=== PATIENT | female | born 1990 | race Caucasian/White ===

== ENCOUNTER 2017-11-03 21:08 | Emergency (ER) | payer MEDICAID ==
[~2017-11-03] VITALS: Ht 160 cm; Wt 81.6 kg
[2017-11-03 21:09] VITALS: BP 139/90
--- NOTE | 2017-11-03 21:13 | NUR ---
PT AMBULATED TO BED 6 WITH VSS.
--- NOTE | 2017-11-03 21:15 | NUR ---
PT PRESENTED ER WITH SOB DUE TO ASTHMA ATTACK TODAY. PT STATED SHE USED HER INHALOR BUT STILL FEELS SOME WHEEZING AND SOB. PT O2 SAT. IS 98 % ON RA IN ER. SKIN IS PINK/WARM/DRY; AAOX4 WITH EVEN AND STEADY GAIT; ; HR EVEN AND REGULAR; PATIENT STATES PAIN OF 0/10 AT THIS TIME; VSS; PATIENT POSITIONED FOR COMFORT; HOB ELEVATED; BEDRAILS UP X2; BED DOWN. ER MD MADE AWARE OF PT STATUS.
[2017-11-03] MEDS ORDERED: ALBUTEROL SULFATE/IPRATROPIU 3 ML SOL IH ONE (21:45)
[2017-11-03] MEDS ORDERED: predniSONE 20 MG TAB PO ONE (21:45)
[2017-11-03 22:18] VITALS: BP 120/68
== END 2017-11-03 22:18 | disposition home or self-care (01) ==
LOC: MED 21:08
DX: J45.901 Unspecified asthma with (acute) exacerbation (principal); I10 Essential (primary) hypertension
CPT/HCPCS: 81002; 81025; 94640; 99283; J7512; J7620

== ENCOUNTER 2017-12-05 22:27 | Emergency (ER) | payer MEDICAID ==
[~2017-12-05] VITALS: Ht 160 cm; Wt 86.2 kg
[2017-12-05 22:27] VITALS: BP 148/92
--- NOTE | 2017-12-05 22:32 | NUR ---
PATIENT AMBULATED TO ER BED 1.
--- NOTE | 2017-12-05 22:33 | NUR ---
27 Y/O F W/C/O DIFFICULTY BREATHING AND CONGESTION X 1 DAY. NO RESPIRATORY DISTRESS NOTED.PT SPEAKS IN FULL SENTENCES.PT DENIES N/V/D; SKIN IS INTACT, PINK/WARM/DRY; AAOX4, PERRL, WITH EVEN AND STEADY GAIT; LUNGS WHEEZING BL, BREATHING UNLABORED; HR EVEN AND REGULAR, BL PERIPHERAL PULSES PRESENT; BS ACTIVE X4, NO TENDERNESS TO PALPATION, NO HEPATOSPLENOMEGALLY PALPATED, RESONANT TO PERCUSSION; PT DENIES ANY FEVER, CP, OR COUGH AT THIS TIME; VSS; PATIENT POSITIONED FOR COMFORT; HOB ELEVATED; BEDRAILS UP X2; BED DOWN.
--- NOTE | 2017-12-05 22:48 | NUR ---
Dr. Meraz evaluating patient at bedside.
--- NOTE | 2017-12-05 22:48 | NUR ---
Respiratory Therapist at bedside for respiratory intervention.
[2017-12-05] MEDS ORDERED: ALBUTEROL SULFATE/IPRATROPIU 3 ML SOL IH ONE ×2 (22:55→22:56)
[2017-12-05] MEDS ORDERED: predniSONE 20 MG TAB PO ONE (22:55)
[2017-12-06] MEDS ORDERED: ALBUTEROL SULFATE/IPRATROPIU 3 ML SOL IH ONE (00:05)
--- NOTE | 2017-12-06 01:22 | NUR ---
PATIENT RESTING AT THIS TIME. NO SIGNS OF DISTRESS.
[2017-12-06 01:30] VITALS: BP 138/82
--- NOTE | 2017-12-06 01:30 | NUR ---
Patient discharged with v/s stable. Written and verbal after care instructions given and explained. Patient alert, oriented and verbalized understanding of instructions. Ambulatory with steady gait. All questions addressed prior to discharge. ID band removed. Patient advised to follow up with PMD. Rx of PREDNISONE 50MG AND ALBUTEROL 90MCG/ACTUATION given. Patient educated on indication of medication including possible reaction and side effects. Opportunity to ask questions provided and answered.
== END 2017-12-06 01:30 | disposition home or self-care (01) ==
LOC: MED 22:27
DX: J45.901 Unspecified asthma with (acute) exacerbation (principal); I10 Essential (primary) hypertension
CPT/HCPCS: 71045; 94640; 99283; J7512; J7620; Q0092

== ENCOUNTER 2018-05-14 22:28 | Emergency (ER) | payer MEDICAID ==
[~2018-05-14] VITALS: Ht 160 cm; Wt 85.7 kg
[2018-05-14 22:39] VITALS: BP 155/86
--- NOTE | 2018-05-14 22:39 | NUR ---
PT TRIAGED AND AMBULATED TO BED 12 REPORT TO JERMAINE ESPINOZA
--- NOTE | 2018-05-14 22:40 | NUR ---
PT TAKEN TO US
--- NOTE | 2018-05-14 22:45 | NUR ---
PT C/O SCANT AMOUNT OF BROWN VAGINAL DISCHARGE AND R/L LOWER QUADRANT ABD CRAMPING 5/10 STARTING 30 MIN AGO, 5 WEEKS , MISCARRIED FIRST . YING 01/13/19. DENIES CP/SOB/DIZZINESS. --DENIES N/V/D; SKIN IS PINK/WARM/DRY; AAOX4 WITH EVEN AND STEADY GAIT; LUNGS CLEAR BL; HR EVEN AND REGULAR; PT DENIES ANY FEVER, CP, SOB, OR COUGH AT THIS TIME; VSS; PATIENT POSITIONED FOR COMFORT; HOB ELEVATED; BEDRAILS UP X2; BED DOWN. ER MD MADE AWARE OF PT STATUS. HX--MISCARRIAGE MEDS-- VITAMINS
[2018-05-14 23:29] LABS: BASOPHILS # (AUTO) 0.1 K/uL (0.00-0.22); BASOPHILS % (AUTO) 0.9 % (0.0-2.0); EOSINOPHILS # (AUTO) 1.1 K/uL (0-0.4); EOSINOPHILS % (AUTO) 6.8 % (0.0-4.0); HEMATOCRIT 40.4 % (36-48); HEMOGLOBIN 13.3 g/dL (12.0-16.0); LYMPHOCYTES # (AUTO) 4.9 K/uL (2.5-16.5); LYMPHOCYTES % (AUTO) 30.6 % (20.5-51.1); MEAN CORPUSCULAR HEMOGLOBIN 29 pg (27-31); MEAN CORPUSCULAR HGB CONC 33 g/dL (33-37); MONOCYTES # (AUTO) 1.1 K/uL (0.8-1.0); MONOCYTES % (AUTO) 7.1 % (1.7-9.3); NEUTROPHILS # (AUTO) 8.7 K/uL (1.8-7.7); PLATELET COUNT (AUTO) 393 K/uL (140-450); RED BLOOD CELL COUNT(AUTO) 4.54 MIL/uL (4.20-5.40); RED CELL DISTRIBUTION WIDTH 13.6 % (11.6-13.7); WHITE BLOOD COUNT (AUTO) 15.9 K/uL (4.8-10.8)
[2018-05-14 23:36] LABS: APPEARANCE,URINE CLEAR (CLEAR); BILIRUBIN,URINE NEGATIVE (NEGATIVE); BLOOD, URINE 2+ (NEGATIVE); COLOR,URINE YELLOW (YELLOW); LEUKOCYTE ESTERASE ,URINE 1+ (NEGATIVE); NITRITE, URINE NEGATIVE (NEGATIVE); PH,URINE 7.5 (5.0-9.0); UGLUCOSE NEGATIVE (NEGATIVE)
[2018-05-14 23:45] LABS: ANION GAP 12.4 (8-16); CARBON DIOXIDE 26.5 mmol/L (21-32); CREATININE 0.7 mg/dL (0.6-1.3); POTASSIUM 3.9 mmol/L (3.5-5.1)
[2018-05-14 23:48] LABS: RBC,URINE 0 /HPF (0-5)
[2018-05-14 23:52] LABS: NEUTROPHILS % (AUTO) 54.6 % (42.2-75.2)
[2018-05-15 00:34] VITALS: BP 132/78
== END 2018-05-15 00:25 | disposition home or self-care (01) ==
LOC: MED 22:28
DX: O23.41 Unspecified infection of urinary tract in pregnancy, first trimester (principal); O99.511 Diseases of the respiratory system complicating pregnancy, first trimester; J45.909 Unspecified asthma, uncomplicated; O16.1 Unspecified maternal hypertension, first trimester; Z3A.01 Less than 8 weeks gestation of pregnancy
CPT/HCPCS: 36415; 76801; 80048; 81001; 84702; 85025; 86900; 86901; 87086; 99284; Q0092

== ENCOUNTER 2018-06-24 15:14 | Emergency (ER) | payer SELFPAY ==
[~2018-06-24] VITALS: Ht 160 cm; Wt 84.4 kg
[2018-06-24 15:19] VITALS: BP 142/86
--- NOTE | 2018-06-24 15:30 | NUR ---
URINE COLLECTED AND SENT TO LAB
--- NOTE | 2018-06-24 15:30 | NUR ---
PT AMBULATED TO BED 2
--- NOTE | 2018-06-24 15:31 | NUR ---
C/O LOWER CENTRAL ABD PAIN & NAUSEA X 1 DAY, DENIES V/D/FEVER, VAGINAL BLEEDING. PT HAD PREVIOUS MISCARRAIGE 05/15/2018 HERE AT [facility]. HCG (+). SKIN IS PINK/WARM/DRY; AAOX4 WITH EVEN AND STEADY GAIT; LUNGS CLEAR BL; HR EVEN AND REGULAR; VSS; PATIENT POSITIONED FOR COMFORT; HOB ELEVATED; BEDRAILS UP X1; BED DOWN. ER MD MADE AWARE OF PT STATUS.
[2018-06-24 15:53] LABS: BASOPHILS # (AUTO) 0.1 K/uL (0.00-0.22); BASOPHILS % (AUTO) 0.8 % (0.0-2.0); EOSINOPHILS # (AUTO) 0.6 K/uL (0-0.4); HEMATOCRIT 40.7 % (36-48); HEMOGLOBIN 13.7 g/dL (12.0-16.0); LYMPHOCYTES # (AUTO) 4.4 K/uL (2.5-16.5); LYMPHOCYTES % (AUTO) 28.2 % (20.5-51.1); MEAN CORPUSCULAR HEMOGLOBIN 30 pg (27-31); MEAN CORPUSCULAR HGB CONC 34 g/dL (33-37); MEAN CORPUSCULAR VOLUME 88.6 fL (80-94); MONOCYTES # (AUTO) 0.9 K/uL (0.8-1.0); MONOCYTES % (AUTO) 5.8 % (1.7-9.3); NEUTROPHILS # (AUTO) 9.5 K/uL (1.8-7.7); NEUTROPHILS % (AUTO) 61.2 % (42.2-75.2); PLATELET COUNT (AUTO) 430 K/uL (140-450); RED BLOOD CELL COUNT(AUTO) 4.59 MIL/uL (4.20-5.40); RED CELL DISTRIBUTION WIDTH 13.7 % (11.6-13.7); WHITE BLOOD COUNT (AUTO) 15.5 K/uL (4.8-10.8)
[2018-06-24 16:09] LABS: APPEARANCE,URINE CLOUDY (CLEAR); BILIRUBIN,URINE NEGATIVE (NEGATIVE); BLOOD, URINE TRACE-I (NEGATIVE); COLOR,URINE YELLOW (YELLOW); LEUKOCYTE ESTERASE ,URINE TRACE (NEGATIVE); NITRITE, URINE NEGATIVE (NEGATIVE); PH,URINE 6.5 (5.0-9.0); UGLUCOSE NEGATIVE (NEGATIVE)
[2018-06-24 16:28] LABS: RBC,URINE 0-5 /HPF (0-5); URINE AMORPHOUS URATE 1+ /HPF (None Seen)
--- NOTE | 2018-06-24 17:32 | NUR ---
PT RESTING IN BED, NO NEW NEEDS AT THIS TIME
--- NOTE | 2018-06-24 17:50 | NUR ---
CALLED U/S TO CHECK STATUS OF RESULTS
--- NOTE | 2018-06-24 17:55 | NUR ---
U/S CALLED BACK TO INFORM THIS ONE IS THE NEXT ONE TO BE READ
[2018-06-24 18:55] VITALS: BP 132/80
--- NOTE | 2018-06-24 18:55 | NUR ---
Patient discharged with v/s stable. Written and verbal after care instructions given and explained. Patient alert, oriented and verbalized understanding of instructions. Ambulatory with steady gait. All questions addressed prior to discharge. ID band removed. Patient advised to follow up with PMD. Rx of ZOFRAN AND MACROBID given. Patient educated on indication of medication including possible reaction and side effects. Opportunity to ask questions provided and answered.
--- NOTE | 2018-06-25 15:00 | NUR ---
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
== END 2018-06-24 18:55 | disposition home or self-care (01) ==
LOC: MED 15:14
DX: O20.0 Threatened abortion (principal); O23.41 Unspecified infection of urinary tract in pregnancy, first trimester; J45.909 Unspecified asthma, uncomplicated; Z3A.01 Less than 8 weeks gestation of pregnancy
CPT/HCPCS: 36415; 76817; 81001; 81025; 84702; 85025; 87086; 99284; Q0092

== ENCOUNTER 2018-07-18 19:27 | Emergency (ER) | payer MEDICAID ==
[~2018-07-18] VITALS: Ht 160 cm; Wt 84.4 kg
[2018-07-18 19:37] VITALS: BP 153/96
--- NOTE | 2018-07-18 19:57 | NUR ---
28/F PRESENTS WITH SPOUSE, C/O BROWN VAGINAL DISCHARGE X1 HR. PT REPORTS BEING 8 WEEKS , A2. PT DENIES VAGINAL BLEEDING. REPORTS 6/10 LOWER ABD PAIN, RADIATING TO LOWER BACK, X2 DAYS. PT DENIES FEVER, N/V/D, CONSTIPATION OR DYSURIA. AOX4, GCS 15, SKIN NORMAL WARM AND DRY, RR EVEN AND UNLABORED. HX ASTHMA RX ALBUTEROL, VITAMINS
[2018-07-18 20:40] LABS: BASOPHILS # (AUTO) 0.1 K/uL (0.00-0.22); BASOPHILS % (AUTO) 0.8 % (0.0-2.0); EOSINOPHILS % (AUTO) 6.8 % (0.0-4.0); HEMATOCRIT 40.3 % (36-48); HEMOGLOBIN 13.5 g/dL (12.0-16.0); LYMPHOCYTES # (AUTO) 3.7 K/uL (2.5-16.5); LYMPHOCYTES % (AUTO) 26.2 % (20.5-51.1); MEAN CORPUSCULAR HEMOGLOBIN 30 pg (27-31); MEAN CORPUSCULAR HGB CONC 33 g/dL (33-37); MEAN CORPUSCULAR VOLUME 88.7 fL (80-94); MONOCYTES # (AUTO) 0.9 K/uL (0.8-1.0); MONOCYTES % (AUTO) 6.6 % (1.7-9.3); NEUTROPHILS # (AUTO) 8.4 K/uL (1.8-7.7); NEUTROPHILS % (AUTO) 59.6 % (42.2-75.2); PLATELET COUNT (AUTO) 393 K/uL (140-450); RED BLOOD CELL COUNT(AUTO) 4.54 MIL/uL (4.20-5.40); RED CELL DISTRIBUTION WIDTH 13.4 % (11.6-13.7); WHITE BLOOD COUNT (AUTO) 14.1 K/uL (4.8-10.8)
[2018-07-18 20:40] LABS: APPEARANCE,URINE CLEAR (CLEAR); BILIRUBIN,URINE NEGATIVE (NEGATIVE); BLOOD, URINE TRACE-I (NEGATIVE); COLOR,URINE YELLOW (YELLOW); LEUKOCYTE ESTERASE ,URINE NEGATIVE (NEGATIVE); NITRITE, URINE NEGATIVE (NEGATIVE); PH,URINE 6.5 (5.0-9.0); UGLUCOSE NEGATIVE (NEGATIVE)
[2018-07-18 22:05] VITALS: BP 133/81
--- NOTE | 2018-07-18 22:05 | NUR ---
Patient discharged with v/s stable. Written and verbal after care instructions given and explained. Patient verbalized understanding. Ambulatory with steady gait. All questions addressed prior to discharge. Advised to follow up with PMD.
== END 2018-07-18 22:05 | disposition home or self-care (01) ==
LOC: MED 19:27
DX: O20.0 Threatened abortion (principal); J45.909 Unspecified asthma, uncomplicated; Z3A.08 8 weeks gestation of pregnancy
CPT/HCPCS: 36415; 76817; 81003; 81025; 84702; 85025; 86900; 86901; 87210; 99284; Q0092

== ENCOUNTER 2020-06-18 18:20 | Emergency (ER) | payer MEDICAID ==
[~2020-06-18] VITALS: Ht 157.5 cm; Wt 94.8 kg
[2020-06-18 18:36] VITALS: BP 140/80
--- NOTE | 2020-06-18 18:55 | NUR ---
Patient ambulated to bed 01 with steady/even gait.
--- NOTE | 2020-06-18 19:08 | NUR ---
29 y/o F coming in from home with c/c subrapubic pain since 06/17/20. Patient states acute onset of surbapubic pain, describes pain as 4/10, cramp/stabbing/intermittent. Pt states she took Tylenol with relief prior to arrival. Pt states she feels better when laying down, pain worsens when holding her baby or any form of weight. Pt states associated nausea, diarrhea x 3-4 on 06/18 no blood or foul smell noted, and "feeling bloated." Patient denies vomiting, constipation, urinary symptoms, CP, SOB. Pt states associated back pain, however, is chronic and usual for her. Pt states LMP is 3 months ago, "has irregular periods." Pt denies being exposed to any COVID + patients, and has not received any recent vaccinations at this time. manufacturing team leader in place. Lung sounds CTA. Bowel sounds normoactive x 4 quadrants. Bed locked in lowest position, side rails x 1, call light in reach. PMH: Ovarian cyst, asthma, anxiety/panic attacks MEds: Octavio Brown Aderax NKA Sx: 2019
--- NOTE | 2020-06-18 19:15 | NUR ---
Report and transfer of care given to ALEXIS Richards.
--- NOTE | 2020-06-18 19:15 | NUR ---
RECEIVED PT IN BED 1, AWAKE AND ALERT WITH C/O A/P, NAUSEA AND DIARRHEA. PT STATES H/O " CYSTS ". STATES PAIN IS 4/10.
[2020-06-18] MEDS ORDERED: NACL 0.9% 1,000 ML IV ONE (19:25)
[2020-06-18] MEDS ORDERED: ONDANSETRON 4 MG/2 ML VIAL IVP ONE (19:25)
[2020-06-18 19:41] LABS: APPEARANCE,URINE CLEAR (CLEAR); BILIRUBIN,URINE NEGATIVE (NEGATIVE); BLOOD, URINE TRACE-I (NEGATIVE); COLOR,URINE YELLOW (YELLOW); LEUKOCYTE ESTERASE ,URINE NEGATIVE (NEGATIVE); NITRITE, URINE NEGATIVE (NEGATIVE); PH,URINE 6.5 (5.0-9.0); UGLUCOSE NEGATIVE (NEGATIVE)
[2020-06-18 19:52] LABS: WBC,URINE 0-5 /HPF (0-5)
[2020-06-18 20:04] LABS: BASOPHILS # (AUTO) 0.1 K/uL (0.00-0.22); BASOPHILS % (AUTO) 0.5 % (0.0-2.0); EOSINOPHILS # (AUTO) 0.5 K/uL (0-0.4); EOSINOPHILS % (AUTO) 3.4 % (0.0-4.0); HEMATOCRIT 40.6 % (36-48); HEMOGLOBIN 13.2 g/dL (12.0-16.0); LYMPHOCYTES # (AUTO) 4.8 K/uL (2.5-16.5); MEAN CORPUSCULAR HEMOGLOBIN 29 pg (27-31); MEAN CORPUSCULAR HGB CONC 33 g/dL (33-37); MEAN CORPUSCULAR VOLUME 87.9 fL (80-94); MONOCYTES # (AUTO) 0.9 K/uL (0.8-1.0); NEUTROPHILS # (AUTO) 8.3 K/uL (1.8-7.7); NEUTROPHILS % (AUTO) 57.1 % (42.2-75.2); PLATELET COUNT (AUTO) 411 K/uL (140-450); RED BLOOD CELL COUNT(AUTO) 4.62 MIL/uL (4.20-5.40); RED CELL DISTRIBUTION WIDTH 14.1 % (11.6-13.7); WHITE BLOOD COUNT (AUTO) 14.5 K/uL (4.8-10.8)
[2020-06-18 20:11] LABS: ANION GAP 10.5 (8-16); CARBON DIOXIDE 26.4 mmol/L (21-32); CREATININE 0.5 mg/dL (0.6-1.3); POTASSIUM 3.9 mmol/L (3.5-5.1)
--- NOTE | 2020-06-18 20:35 | NUR ---
AMBULATED TO BR
--- NOTE | 2020-06-18 20:40 | NUR ---
US IN PROGRESS
[2020-06-18] MEDS ORDERED: ONDA4TAB PO (21:46)
[2020-06-18 22:05] VITALS: BP 140/80
--- NOTE | 2020-06-18 22:05 | NUR ---
ALL EXAM RESULTS RETURNED, REVIEWED.IV D/C'D, CATHETER INTACT, ARM BAND REMOVED. DISCHARGED HOME, AMBULATORY WITH STEADY GAIT. ACI IN POSESSION WITH UNDERSTANDING EXPRESSED
== END 2020-06-18 22:05 | disposition home or self-care (01) ==
LOC: MED 18:20
DX: O26.891 Other specified pregnancy related conditions, first trimester (principal); R10.2 Pelvic and perineal pain; J45.909 Unspecified asthma, uncomplicated; I10 Essential (primary) hypertension; Z79.899 Other long term (current) drug therapy
CPT/HCPCS: 36415; 76817; 80048; 81001; 81025; 84702; 85025; 96361; 96374; 99284; J2405; J7030

== ENCOUNTER 2020-08-25 19:59 | Emergency (ER) | payer MEDICAID ==
[~2020-08-25] VITALS: Ht 160 cm; Wt 93.0 kg
[~2020-08-25 19:59] MED LIST: ONDA4TAB PO
[2020-08-25 20:11] VITALS: BP 108/70
--- NOTE | 2020-08-25 20:11 | NUR ---
TO BED AMBULATORY
[2020-08-25 20:38] LABS: BASOPHILS # (AUTO) 0.1 K/uL (0.00-0.22); BASOPHILS % (AUTO) 0.5 % (0.0-2.0); EOSINOPHILS # (AUTO) 0.6 K/uL (0-0.4); EOSINOPHILS % (AUTO) 3.9 % (0.0-4.0); HEMATOCRIT 36.4 % (36-48); HEMOGLOBIN 12.3 g/dL (12.0-16.0); LYMPHOCYTES # (AUTO) 3.6 K/uL (2.5-16.5); LYMPHOCYTES % (AUTO) 25.3 % (20.5-51.1); MEAN CORPUSCULAR HEMOGLOBIN 30 pg (27-31); MEAN CORPUSCULAR HGB CONC 34 g/dL (33-37); MEAN CORPUSCULAR VOLUME 87.7 fL (80-94); MONOCYTES # (AUTO) 0.8 K/uL (0.8-1.0); MONOCYTES % (AUTO) 5.3 % (1.7-9.3); NEUTROPHILS # (AUTO) 9.4 K/uL (1.8-7.7); PLATELET COUNT (AUTO) 364 K/uL (140-450); RED BLOOD CELL COUNT(AUTO) 4.15 MIL/uL (4.20-5.40); WHITE BLOOD COUNT (AUTO) 14.4 K/uL (4.8-10.8)
--- NOTE | 2020-08-25 20:40 | NUR ---
URINE SAMPLE COLLECTED AND GIVEN TO CRESTER AT BEDSIDE.
[2020-08-25 20:46] LABS: APPEARANCE,URINE SL CLOUDY (CLEAR); BILIRUBIN,URINE NEGATIVE (NEGATIVE); BLOOD, URINE TRACE-L (NEGATIVE); COLOR,URINE YELLOW (YELLOW); LEUKOCYTE ESTERASE ,URINE NEGATIVE (NEGATIVE); NITRITE, URINE NEGATIVE (NEGATIVE); PH,URINE 7.5 (5.0-9.0); UGLUCOSE NEGATIVE (NEGATIVE)
--- NOTE | 2020-08-25 20:50 | NUR ---
HEART TONES COMPLETED PER ERMD ORDER. HEART RATE 175 BPM. ERMD MADE AWARE.
[2020-08-25 20:58] LABS: RBC,URINE 0-5 /HPF (0-5); WBC,URINE 0-5 /HPF (0-5)
[2020-08-25 20:59] LABS: COARSE GRANULAR CASTS,URINE 0-2 /LPF (None Seen)
--- NOTE | 2020-08-25 21:00 | NUR ---
PT BIB SELF FOR C/O HEADACHE WITH DIZZINESS THAT HAS BEEN GOING ON SINCE EARLIER TODAY. PT REPORTS POSITIVE FOR . THIS IS HER 2ND WITH ONE LIVING CHILD. PT DENIES VAGINAL BLEEDING OR ABDOMINAL CRAMPING AT THIS TIME. PT DENIES N/V/D, FEVER, CHILLS, SOB, CP. SEE COMPLETE ASSESSMENT FOR FURTHER DETAILS. MED HX: ASTHMA ALLERGIES: "SEASONAL ALLERGIES"
--- NOTE | 2020-08-25 21:13 | NUR ---
Dr. Natarajan examining patient.
[2020-08-25 21:26] VITALS: BP 108/70
== END 2020-08-25 21:26 | disposition home or self-care (01) ==
LOC: MED 19:59
DX: O26.892 Other specified pregnancy related conditions, second trimester (principal); R51.9 Headache, unspecified; R42 Dizziness and giddiness; J45.909 Unspecified asthma, uncomplicated; I10 Essential (primary) hypertension; Z3A.15 15 weeks gestation of pregnancy; Z98.890 Other specified postprocedural states; Z79.899 Other long term (current) drug therapy
CPT/HCPCS: 36415; 81001; 84702; 85025; 99283

== ENCOUNTER 2020-09-28 23:54 | Observation (INO) | payer MEDICAID ==
[~2020-09-28] VITALS: Ht 160 cm; Wt 91.6 kg
[2020-09-29 00:05] VITALS: BP 131/74
--- NOTE | 2020-09-29 00:05 | NUR ---
TO BED AMBULATORY
--- NOTE | 2020-09-29 00:47 | NUR ---
DR. WOO AT BEDSIDE EXAMINING PATIENT
--- NOTE | 2020-09-29 00:50 | NUR ---
MSE COMPLETED BY DR. WOO. PT TAKEN TO OB AT THIS TIME VIA W/C
[2020-09-29 01:01] LABS: APPEARANCE,URINE CLEAR (CLEAR); BILIRUBIN,URINE NEGATIVE (NEGATIVE); BLOOD, URINE NEGATIVE (NEGATIVE); COLOR,URINE YELLOW (YELLOW); LEUKOCYTE ESTERASE ,URINE NEGATIVE (NEGATIVE); NITRITE, URINE NEGATIVE (NEGATIVE); UGLUCOSE NEGATIVE (NEGATIVE)
[2020-09-29] MEDS ORDERED: PNV91TAB8 PO (01:10)
[2020-09-29] MEDS ORDERED: ACET-2619 PO ×2 (01:12)
[2020-09-29 01:31] LABS: RBC,URINE NONE SEEN /HPF (0-5); WBC,URINE NONE SEEN /HPF (0-5)
[2020-09-29] MEDS ORDERED: ACETAMINOPHEN EXTRA STRENGTH 500 MG TAB ONE (02:58)
[2020-09-29] MEDS ORDERED: ACETAMINOPHEN EXTRA STRENGTH 500 MG TAB PO PRN (03:35)
[2020-09-29] MEDS ORDERED: LACTATED RINGERS 1,000 ML IV SCH (03:40)
[2020-09-29 04:31] LABS: HEMATOCRIT 35.5 % (36-48); HEMOGLOBIN 11.7 g/dL (12.0-16.0); MEAN CORPUSCULAR HEMOGLOBIN 30 pg (27-31); MEAN CORPUSCULAR HGB CONC 33 g/dL (33-37); MEAN CORPUSCULAR VOLUME 90.2 fL (80-94); PLATELET COUNT (AUTO) 312 K/uL (140-450); RED BLOOD CELL COUNT(AUTO) 3.93 MIL/uL (4.20-5.40); RED CELL DISTRIBUTION WIDTH 13.7 % (11.6-13.7)
[2020-09-29 04:36] LABS: ALBUMIN 2.9 g/dL (3.4-5.0); ANION GAP 13.2 (8-16); CARBON DIOXIDE 22.2 mmol/L (21-32); CREATININE 0.5 mg/dL (0.6-1.3); POTASSIUM 3.4 mmol/L (3.5-5.1); TOTAL BILIRUBIN 0.4 mg/dL (0.0-1.0)
[2020-09-29 04:54] LABS: EOSINOPHILS % (MANUAL) 1 % (0-4); LYMPHOCYTES % (MANUAL) 13 % (20-46); MONOCYTES % (MANUAL) 7 % (5-12)
== END 2020-09-29 09:02 | disposition home or self-care (01) ==
LOC: MED 23:54 → MLD 09-29 00:50
PROVIDERS: ADMIT Obstetrics & Gynecology; ATTEND Obstetrics & Gynecology
DX: O21.9 Vomiting of pregnancy, unspecified (principal); O26.892 Other specified pregnancy related conditions, second trimester; R10.32 Left lower quadrant pain; R30.0 Dysuria; O99.891 Other specified diseases and conditions complicating pregnancy; R00.0 Tachycardia, unspecified; Z3A.20 20 weeks gestation of pregnancy
CPT/HCPCS: 36415; 59025; 80053; 81001; 82948; 85025; 96360; 96361; 99284; G0378

== ENCOUNTER 2023-05-18 08:56 | Emergency (ER) | payer MEDICAID ==
[~2023-05-18] VITALS: Ht 160 cm; Wt 93.9 kg
[~2023-05-18 08:56] MED LIST changes: +ACET-2619 PO; +PNV91TAB8 PO
[2023-05-18 09:04] VITALS: BP 140/88; PULSE 96; RESP 16; TEMP 97.8; O2SAT 98
[2023-05-18] MEDS: KETOROLAC 30 MG/ML VIAL IM ONE (09:46)
[2023-05-18] MEDS: PROCHLORPERAZINE 10 MG/2 ML VIAL IM ONE (09:46)
[2023-05-18] MEDS ORDERED: PROC-87 PO (10:59)
[2023-05-18] MEDS ORDERED: NAPR-1704 PO (10:59)
[2023-05-18 11:11] VITALS: BP 121/62; PULSE 74; RESP 18; TEMP 98.3; O2SAT 99
== END 2023-05-18 11:03 | disposition home or self-care (01) ==
LOC: MED 08:56
DX: G43.909 Migraine, unspecified, not intractable, without status migrainosus (principal); J45.909 Unspecified asthma, uncomplicated; I10 Essential (primary) hypertension; Z79.899 Other long term (current) drug therapy
CPT/HCPCS: 81002; 81025; 96372; 99284; J0780; J1885

== ENCOUNTER 2023-08-31 13:24 | Emergency (ER) | payer MEDICAID ==
[~2023-08-31] VITALS: Ht 160 cm; Wt 94.8 kg
[~2023-08-31 13:24] MED LIST changes: +NAPR-1704 PO; +PROC-87 PO
[2023-08-31 13:41] VITALS: BP 140/80; PULSE 92; RESP 16; TEMP 98.8
[2023-08-31 13:58] VITALS: O2SAT 98
[2023-08-31 15:23] VITALS: PULSE 85; RESP 20; O2SAT 98
[2023-08-31] MEDS: ALBUTEROL SULFATE/IPRATROPIU 3 ML SOL IH ONE (15:23)
[2023-08-31] MEDS: KETOROLAC 30 MG/ML VIAL IM ONE (15:39)
[2023-08-31 15:51] LABS: BASOPHILS # (AUTO) 0.1 K/uL (0.00-0.22); BASOPHILS % (AUTO) 0.7 % (0.0-2.0); EOSINOPHILS # (AUTO) 0.7 K/uL (0-0.4); EOSINOPHILS % (AUTO) 6.2 % (0.0-4.0); HEMATOCRIT 43.9 % (36-48); HEMOGLOBIN 14.5 g/dL (12.0-16.0); LYMPHOCYTES # (AUTO) 4.1 K/uL (2.5-16.5); LYMPHOCYTES % (AUTO) 34.8 % (20.5-51.1); MEAN CORPUSCULAR HEMOGLOBIN 28 pg (27-31); MEAN CORPUSCULAR HGB CONC 33 g/dL (33-37); MEAN CORPUSCULAR VOLUME 85.7 fL (80-94); MONOCYTES # (AUTO) 0.6 K/uL (0.8-1.0); MONOCYTES % (AUTO) 5.2 % (1.7-9.3); NEUTROPHILS # (AUTO) 6.3 K/uL (1.8-7.7); NEUTROPHILS % (AUTO) 53.1 % (42.2-75.2); PLATELET COUNT (AUTO) 329 K/uL (140-450); RED BLOOD CELL COUNT(AUTO) 5.12 MIL/uL (4.20-5.40); RED CELL DISTRIBUTION WIDTH 13.8 % (11.6-13.7); WHITE BLOOD COUNT (AUTO) 11.8 K/uL (4.8-10.8)
[2023-08-31 15:53] VITALS: O2SAT 98
[2023-08-31 16:03] LABS: ANION GAP 14.9 (8-16); CALCIUM 8.6 mg/dL (8.5-10.1); CREATININE 0.6 mg/dL (0.6-1.3); POTASSIUM 3.9 mmol/L (3.5-5.1)
[2023-08-31 16:25] VITALS: BP 129/69; PULSE 85; RESP 20; TEMP 98.8; O2SAT 98
[2023-08-31] MEDS ORDERED: ALPR0.5T2 PO (17:54)
[2023-08-31] MEDS ORDERED: TRAZ-343 PO (17:54)
[2023-08-31] MEDS ORDERED: ESCI10TA PO (17:54)
[2023-08-31] MEDS: LORazepam 1 MG TAB PO ONE (18:02)
== END 2023-08-31 18:20 | disposition home or self-care (01) ==
LOC: MED 13:24
DX: F41.9 Anxiety disorder, unspecified (principal); R07.89 Other chest pain; G47.00 Insomnia, unspecified; F32.A Depression, unspecified; J45.909 Unspecified asthma, uncomplicated; Z98.890 Other specified postprocedural states; Z79.1 Long term (current) use of non-steroidal anti-inflammatories (NSAID); Z79.899 Other long term (current) drug therapy
CPT/HCPCS: 36415; 71045; 80048; 81025; 84484; 85025; 93005; 94640; 96372; 99285; J1885